=== PATIENT | female | born 1950 | race Caucasian/White ===

== ENCOUNTER → 2016-08-24 | Outpatient (CLI) | payer MEDICARE, OTHER ==
[~2016-08-24] MED LIST: SODIUM CHLORIDE 0.9% 250 ML in EMPTY BAG 1 BAG IV PRN; SODIUM CHLORIDE 0.9% 500 ML in EMPTY BAG 1 BAG IV PRN
[2016-08-24 12:51] VITALS: BP 174/74; PULSE 61; RESP 16; TEMP 97.8
== END | disposition home or self-care (01) ==
LOC: PROCWHC3 12:28
PROVIDERS: ATTEND Physician Assistant
DX: Z95.828 Presence of other vascular implants and grafts (principal); Z88.0 Allergy status to penicillin; Z88.8 Allergy status to other drugs, medicaments and biological substances; Z91.040 Latex allergy status
CPT/HCPCS: 96523; J1642

== ENCOUNTER → 2016-10-05 | Outpatient (CLI) | payer MEDICARE, OTHER ==
[2016-10-05 13:02] VITALS: BP 132/72; PULSE 59; RESP 18; TEMP 98.1
== END | disposition home or self-care (01) ==
LOC: PROCWHC3 12:47
PROVIDERS: ATTEND Obstetrics & Gynecology
DX: Z95.828 Presence of other vascular implants and grafts (principal); T82.599A Other mechanical complication of unspecified cardiac and vascular devices and implants, initial encounter
CPT/HCPCS: 96523; J1642

== ENCOUNTER → 2016-11-16 | Outpatient (CLI) | payer MEDICARE ==
[2016-11-16 13:39] VITALS: BP 133/67; PULSE 63; RESP 16; TEMP 98.1
== END | disposition home or self-care (01) ==
LOC: PROCWHC3 12:54
PROVIDERS: ATTEND Physician Assistant
DX: Z09 Encounter for follow-up examination after completed treatment for conditions other than malignant neoplasm (principal); Z95.828 Presence of other vascular implants and grafts
CPT/HCPCS: 96523; J1642

== ENCOUNTER → 2016-12-28 | Outpatient (CLI) | payer MEDICARE ==
[2016-12-28 13:35] VITALS: BP 145/69; PULSE 53; RESP 22; TEMP 97.8
== END | disposition home or self-care (01) ==
LOC: PROCWHC3 12:54
PROVIDERS: ATTEND Physician Assistant
DX: Z48.812 Encounter for surgical aftercare following surgery on the circulatory system (principal); Z95.828 Presence of other vascular implants and grafts
CPT/HCPCS: 96523; J1642

== ENCOUNTER → 2017-02-09 | Outpatient (CLI) | payer MEDICARE ==
[2017-02-09 13:08] VITALS: BP 178/79; PULSE 62; RESP 16; TEMP 97.8
== END | disposition home or self-care (01) ==
LOC: PROCWHC3 12:38
PROVIDERS: ATTEND Physician Assistant
DX: Z95.828 Presence of other vascular implants and grafts (principal)
CPT/HCPCS: 96523; J1642

== ENCOUNTER 2017-05-18 14:10 | Emergency (ER) | payer MEDICARE ==
[2017-05-18 14:27] VITALS: BP 178/82; PULSE 70; RESP 18; TEMP 98.6
--- NOTE | 2017-05-18 14:58 | ED ---
Fall HPI - General Chief Complaint: Fall Stated Complaint: Fall Time Seen by Provider: 05/18/17 14:32 Source: patient, RN notes reviewed Mode of arrival: ambulatory Limitations: no limitations - History of Present Illness Initial Comments: This a 66-year-old female presents emergency Department chief complaint right shoulder pain. Patient states she tripped and fell today the ground her right shoulder with her arm tucked in. She states that she has increasing pain states that she can barely move her arm. Patient states that she's had no prior shoulder injuries other than a few weeks ago she tripped and fell on it. She denies any prior fractures. Patient denies head injury, LOC, neck pain, back pain. Patient denies any hip or any lower extremity injury. Patient has no paresthesias. - Related Data Home Medications Medication Instructions Recorded Confirmed Ascorbic Acid [Vitamin C] 1,000 mg PO DAILY 12/31/13 05/18/17 Atenolol 50 mg PO DAILY 12/31/13 05/18/17 Calcium Carbonate/Vitamin D3 1 cap PO BID 12/31/13 05/18/17 [Caltrate 600 Plus D3 Tablet] Multivitamin/Iron/Folic Acid 1 cap PO DAILY 12/31/13 05/18/17 [Centrum Complete Multivit Tab] Olmesartan/Amlodipin/Hcthiazid 1 cap PO DAILY 12/31/13 05/18/17 [Tribenzor 40-10-25 mg Tablet] Atorvastatin [Lipitor] 10 mg PO DAILY 05/18/17 05/18/17 Levothyroxine Sodium [Synthroid] 150 mcg PO DAILY 05/18/17 05/18/17 [place]-3 Fatty Acids/Fish Oil [Fish 1 cap PO DAILY 05/18/17 05/18/17 Oil 1,000 mg Softgel] Allergies Allergy/AdvReac Type Severity Reaction Status Date / Time latex Allergy Rash/Hives Verified 05/18/17 14:58 Penicillins Allergy Unknown Verified 05/18/17 14:58 Childhood Review of Systems ROS Statement: Those systems with pertinent positive or pertinent negative responses have been documented in the HPI. ROS Other: All systems not noted in ROS Statement are negative. Past Medical History Past Medical History: Cancer Additional Past Medical History / Comment(s): frequent constipation; hemorrhoids ; arthritis; uterine cancer History of Any Multi-Drug Resistant Organisms: None Reported Past Surgical History: Hysterectomy, Joint Replacement Additional Past Surgical History / Comment(s): endometrial biopsy ankle ORIF R Left knee replacement Past Psychological History: No Psychological Hx Reported Smoking Status: Former smoker Past Alcohol Use History: None Reported Past Drug Use History: None Reported General Exam Limitations: no limitations General appearance: alert, in no apparent distress Respiratory exam: Present: normal lung sounds bilaterally. Absent: respiratory distress, wheezes, rales, rhonchi, stridor Cardiovascular Exam: Present: regular rate, normal rhythm, normal heart sounds. 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 Absent: tenderness Neurological exam: Present: alert, oriented X3, CN II-XII intact, reflexes normal. Absent: motor sensory deficit Skin exam: Present: warm, dry, intact, normal color. Absent: rash Course Vital Signs 05/18/17 14:24 Temperature 98.6 F Pulse Rate 70 Respiratory 18 Rate Blood Pressure 178/82 O2 Sat by Pulse 96 Oximetry Medical Decision Making - Medical Decision Making 66-year-old female presents emergency Department treatment right shoulder injury. Patient has no acute fracture dislocation on x-ray. Patient most likely has a rotator cuff injury secondary to her all and unable to move at this time. Patient will be given a sling for comfort care she is to take over- the-counter Tylenol Motrin she was offered further pain medication. Patient will follow-up with [facility]-call [facility]opedics [facility] return parameters were discussed. Disposition Clinical Impression: Fall, Right shoulder injury, Rotator cuff injury Disposition: HOME SELF-CARE Condition: Stable Instructions: Rotator Cuff Injury (ED) Additional Instructions: Please return to the Emergency Department if symptoms worsen or any other concerns. Referrals: Randall Hamilton MD [Primary Care Provider] - 1-2 days Time of Disposition: 15:19
--- NOTE | 2017-05-18 15:05 | XR ---
Right shoulder HISTORY: Trauma and pain 3 views of the right shoulder There is marginal spurring, joint space loss at the glenohumeral joint. Bone mineralization mildly re duced. Arthropathy also noted at the acromioclavicular joint. Right lung apex as visualized is normal . Alignment is maintained. IMPRESSION: No acute fracture or dislocation.
== END 2017-05-18 15:15 | disposition home or self-care (01) ==
LOC: EC 14:10
DX: S46.001A Unspecified injury of muscle(s) and tendon(s) of the rotator cuff of right shoulder, initial encounter (principal); Z79.899 Other long term (current) drug therapy; Z88.0 Allergy status to penicillin; Z91.040 Latex allergy status; Z85.41 Personal history of malignant neoplasm of cervix uteri; W01.0XXA Fall on same level from slipping, tripping and stumbling without subsequent striking against object, initial encounter
CPT/HCPCS: 99283

== ENCOUNTER 2017-09-01 06:25 | Day surgery (SDC) | payer MEDICARE ==
[2017-08-25 11:02] VITALS: BMI 34.7
[~2017-09-01 06:25] MED LIST changes: +LACTATED RINGERS 1,000 ML IV SCH; +MIDAZOLAM 2 MG/2 ML VIAL IV PRN; +ONDANSETRON 4 MG/2 ML VIAL IVP PRN; -SODIUM CHLORIDE 0.9% 250 ML in EMPTY BAG 1 BAG IV PRN; -SODIUM CHLORIDE 0.9% 500 ML in EMPTY BAG 1 BAG IV PRN; +ceFAZolin IN SWFI 2 GM/20 ML SYRINGE IVP ONE; +fentaNYL (PF) 50 MCG/ML 2 ML AMP IV PRN
[2017-09-01] MEDS ORDERED: LIDOCAINE 1% 20 ML VIAL (10MG/ML) FOR IV START INTRADERMA ONE (06:57)
[2017-09-01] MEDS ORDERED: LIDOCAINE 2%-EPI 1:100,000 20 ML VIAL ONE (08:07)
[2017-09-01] MEDS ORDERED: ROPIVACAINE 5 MG/ML 30 ML VIAL ONE (08:07)
[2017-09-01] MEDS ORDERED: PHENYLEPHRINE-0.9% NACL SYG 1 MG/10 ML SYRINGE ONE (08:07)
[2017-09-01] MEDS ORDERED: ePHEDrine SULFATE/0.9% NACL/PF 50 MG/5 ML SYRINGE IV ONE (08:07)
[2017-09-01] MEDS ORDERED: LIDOCAINE 1% INJ 10MG/ML (20 ML MDV) ONE (08:07)
[2017-09-01] MEDS ORDERED: ROCURONIUM BROMIDE 10 MG/ML 10 ML VIAL IV ONE (08:07)
[2017-09-01] MEDS ORDERED: SUCCINYLCHOLINE CHLORIDE 100 MG/5 ML SYR IV ONE (08:07)
[2017-09-01] MEDS ORDERED: PROPOFOL 10 MG/ML 20 ML VIAL IV ONE (08:07)
[2017-09-01] MEDS ORDERED: fentaNYL (PF) 50 MCG/ML 2 ML AMP ONE (08:07)
[2017-09-01] MEDS ORDERED: CLINDAMYCIN 600 MG in SODIUM CHLORIDE 0.9% 1,000 ML IRRIGATION ONE (08:58)
[2017-09-01] MEDS ORDERED: HYDROmorphone 0.5 MG/0.5 ML SYRINGE IVP PRN ×3 (09:46)
[2017-09-01] MEDS ORDERED: SENNOSIDES-DOCUSATE SODIUM 1 EACH TAB PO PRN (09:46)
[2017-09-01] MEDS ORDERED: TEMAZEPAM 15 MG CAP PO PRN (09:46)
[2017-09-01] MEDS ORDERED: HYDROcodone/APAP 5-325MG 1 EACH TAB PO PRN (09:46)
[2017-09-01] MEDS ORDERED: ONDANSETRON 4 MG/2 ML VIAL IVP PRN (09:46)
[2017-09-01] MEDS ORDERED: SODIUM CHLORIDE 0.9% 1,000 ML IV ONE (10:01)
[2017-09-01] MEDS ORDERED: HYDROmorphone 2 MG/ML 1 ML SYRINGE IVP ONE ×2 (10:11→10:26)
[2017-09-01] MEDS ORDERED: SODIUM CHLORIDE 0.9% 500 ML IV ONE ×2 (11:19→11:24)
[2017-09-01] MEDS ORDERED: diphenhydrAMINE 25 MG CAP PO PRN (11:23)
[2017-09-01] MEDS ORDERED: IBUPROFEN 400 MG TAB PO PRN (11:28)
[2017-09-01] MEDS ORDERED: ACETAMINOPHEN TAB 325 MG TAB PO PRN (11:28)
--- NOTE | 2017-09-01 14:14 | P.CONS ---
History of Present Illness - Reason for Consult Consult date: 09/01/17 Medical management - History of Present Illness This is a 67-year-old female patient of Dr. Pranay Hamilton with past medical history of uterine cancer diagnosed 7 years ago status post chemotherapy prior to hysterectomy and after managing [facility], hyperlipidemia, hypertension, hypothyroidism, osteoarthritis. Patient was admitted to the hospital under the care of Dr. Barbosa status post rotator cuff repair. She states she fell on May 30 and stop and able to move her right arm. Her pain is controlled at this time. She does have some hypotension for which 500 mL of IV fluids will be given now. Review of Systems All systems: negative Constitutional: Denies chills, Denies fever Eyes: denies blurred vision, denies pain Ears, nose, mouth and throat: Denies headache, Denies sore throat Cardiovascular: Denies chest pain, Denies shortness of breath Respiratory: Denies cough Gastrointestinal: Denies abdominal pain, Denies diarrhea, Denies nausea, Denies vomiting Genitourinary: Denies dysuria, Denies hematuria Musculoskeletal: Denies myalgias Integumentary: Denies pruritus, Denies rash Neurological: Denies numbness, Denies weakness Psychiatric: Denies anxiety, Denies depression Endocrine: Denies fatigue, Denies weight change Past Medical History Past Medical History: Cancer, Hyperlipidemia, Hypertension, Osteoarthritis (OA) , Thyroid Disorder Additional Past Medical History / Comment(s): frequent constipation; hemorrhoids ; arthritis; uterine cancer History of Any Multi-Drug Resistant Organisms: None Reported Past Surgical History: Hysterectomy, Joint Replacement Additional Past Surgical History / Comment(s): endometrial biopsy, ankle ORIF R , Left knee replacement, port placement and removal Past Anesthesia/Blood Transfusion Reactions: Postoperative Nausea & Vomiting ( PONV) Smoking Status: Former smoker Additional Past Alcohol Use History / Comment(s): Patient was a smoker starting at age 21 and quit in 1993 at one pack per day. She denies any illicit drug use or alcohol use. 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 - Past Family History Mother Family Medical History: No Reported History Additional Family Medical History / Comment(s): Mother at age 76 from a myocardial infarction. Father Additional Family Medical History / Comment(s): Father in his 70s from emphysema and had a history of colon cancer. Brother(s) Additional Family Medical History / Comment(s): Patient had total of 4 brothers , one from heart failure at age 42, 3 brothers living have no major medical problems. Patient has 1 sister with no major medical problems. Patient has 3 daughters and 1 son with no major medical problems. Medications and Allergies Home Medications Medication Instructions Recorded Confirmed Type Ascorbic Acid [Vitamin C] 1,000 mg PO DAILY 12/31/13 08/25/17 History Calcium Carbonate/Vitamin D3 1 cap PO BID 12/31/13 08/25/17 History [Caltrate 600 Plus D3 Tablet] Multivitamin/Iron/Folic Acid 1 cap PO DAILY 12/31/13 08/25/17 History [Centrum Complete Multivit Tab] Olmesartan/Amlodipin/Hcthiazid 1 cap PO DAILY 12/31/13 08/25/17 History [Tribenzor 40-10-25 mg Tablet] Atorvastatin [Lipitor] 10 mg PO Q48H 05/18/17 08/25/17 History Levothyroxine Sodium [Synthroid] 150 mcg PO DAILY 05/18/17 08/25/17 History [place]-3 Fatty Acids/Fish Oil [Fish 1 cap PO DAILY 05/18/17 08/25/17 History Oil 1,000 mg Softgel] Acetaminophen Tab [Tylenol Tab] 650 mg PO Q4H PRN 08/25/17 08/25/17 History Cholecalciferol [Vitamin D3] 400 unit PO DAILY 08/25/17 08/25/17 History Ibuprofen 200 - 800 mg PO DAILY PRN 08/25/17 08/25/17 History Metoprolol Tartrate [Lopressor] 50 mg PO HS 08/25/17 08/25/17 History diphenhydrAMINE [Benadryl] 25 mg PO HS PRN 08/25/17 08/25/17 History Cephalexin [Keflex] 500 mg PO Q8HR #15 cap 09/01/17 Rx HYDROcodone/APAP 5-325MG [[place] 5] 1 - 2 each PO Q4-6H PRN #60 tab 09/01/17 Rx Sennosides-Docusate Sodium 2 tab PO DAILY #30 tablet 09/01/17 Rx [Senokot-S] Allergies Allergy/AdvReac Type Severity Reaction Status Date / Time acetaminophen Allergy CRYING, Verified 09/01/17 11:05 [From Tylenol-Codeine #3] DEPRESSED FEELING adhesive tape Allergy Rash/Hives Verified 09/01/17 11:05 codeine Allergy CRYING, Verified 09/01/17 11:05 [From Tylenol-Codeine #3] DEPRESSED FEELING latex Allergy Rash/Hives Verified 09/01/17 11:05 Penicillins Allergy Unknown Verified 09/01/17 11:05 Childhood Physical Exam Vitals: Vital Signs Temp Pulse Resp BP Pulse Ox 09/01/17 10:29 87 14 105/53 96 09/01/17 10:14 90 14 102/51 96 09/01/17 09:59 89 14 99/53 94 L 09/01/17 09:44 96.8 F L 85 14 88/50 98 09/01/17 07:45 76 97 09/01/17 07:17 79 97 09/01/17 07:00 72 97 09/01/17 06:43 98.3 F 80 16 149/66 97 Intake and Output 08/31/17 09/01/17 09/01/17 22:59 06:59 14:59 Intake Total 1101 Output Total 30 Balance 1071 Intake: IV 1101 Output: Estimated Blood Loss 30 Gen: This is a 67-year-old obese female. She is sitting up in bed and appears to be comfortable. HEENT: Head is atraumatic, normocephalic. Pupils equal, round. Sclerae is anicteric. NECK: Supple. No JVD. No lymphadenopathy. No thyromegaly. LUNGS: Clear to auscultation. No wheezes or rhonchi. No intercostal retractions. HEART: Regular rate and rhythm. No murmur. ABDOMEN: Soft. Bowel sounds are present. No masses. No tenderness. EXTREMITIES: No pedal edema. No calf tenderness. Shoulder immobilizer and large dressing in place to the right shoulder. NEUROLOGICAL: Patient is awake, alert and oriented x3. Cranial nerves 2 through 12 are grossly intact. Assessment and Plan Plan: 1. Right shoulder cuff repair of the care of Dr. Barbosa. 2. Postop hypotension. IV fluids and 100 mL per hour after 500 mL bolus. 3. History of hypertension on Tribenzor which will be started in the morning. Lopressor 50 mg at bedtime with parameters 4. Hyperlipidemia. Continue Lipitor 10 mg every 48 hours. 5. Pain control with history of ALLERGY to codeine. Patient is willing to try Tylenol or Motrin. 6. Hypothyroidism. Continue Synthroid. 7. History of uterine cancer status post chemotherapy and hysterectomy, stable. Discharge plan: Home on Monday Impression and plan of care have been directed as dictated by the signing physician. Yudy Carrion nurse practitioner acting as scribe for signing physician.
[2017-09-01] MEDS: LACTATED RINGERS 1,000 ML IV SCH ×2 (14:29→14:59)
[2017-09-01] MEDS: ceFAZolin IN SWFI 2 GM/20 ML SYRINGE IVP SCH ×2 (15:09→23:45)
[2017-09-01] MEDS: HYDROcodone/APAP 5-325MG 1 EACH TAB PO PRN ×2 (16:57→23:44)
[2017-09-01] MEDS: hydrOXYzine PAMOATE 25 MG CAP PO PRN ×2 (16:57→23:44)
[2017-09-01] MEDS ORDERED: ATORVASTATIN 10 MG TAB PO SCH (21:00)
[2017-09-01] MEDS ORDERED: METOPROLOL TARTRATE 50 MG TAB PO SCH (21:00)
[2017-09-02] MEDS: LACTATED RINGERS 1,000 ML IV SCH (01:30)
[2017-09-02 01:37] VITALS: RESP 16
[2017-09-02] MEDS: hydrOXYzine PAMOATE 25 MG CAP PO PRN ×2 (04:57→10:08)
[2017-09-02] MEDS: HYDROcodone/APAP 5-325MG 1 EACH TAB PO PRN ×3 (04:57→14:28)
[2017-09-02] MEDS ORDERED: AMLODIPIN PO SCH (09:00)
[2017-09-02] MEDS ORDERED: [UNRECOGNIZED DRUG - OTHER] PO SCH (09:00)
[2017-09-02] MEDS ORDERED: HCTHIAZID PO SCH (09:00)
[2017-09-02] MEDS ORDERED: OLMESARTAN PO SCH (09:00)
[2017-09-02] MEDS ORDERED: BENZOCAINE/MENTHOL LOZENG 1 EACH LOZENGE MUCOUS MEM PRN (09:07)
--- NOTE | 2017-09-02 12:04 | P.PN ---
Subjective Progress Note Date: 09/02/17 Principal diagnosis: Status post rotator cuff repair right shoulder. This is a 67-year-old female who is status post rotator cuff repair the right shoulder. She is doing fairly well from an orthopedic standpoint. She does complain of a very sore throat, directly on the right side of her throat. She is having difficulty swallowing and feels that there is possibly food [place] or throat. Her vital signs are stable. She is having no respiratory distress at this time. Objective - Vital Signs Vital signs: Vital Signs Temp 98.3 F 09/02/17 07:00 Pulse 83 09/02/17 07:00 Resp 16 09/02/17 07:00 BP 110/71 09/02/17 07:00 Pulse Ox 97 09/02/17 07:00 Intake & Output 09/01/17 09/02/17 09/02/17 18:59 06:59 18:59 Intake Total 1101 1150 Output Total 30 Balance 1071 1150 Weight 97.5 kg Intake: IV 1101 900 Lactated Ringers 1,000 ml 900 @ 100 mls/hr IV .Q10H REJI Rx#:[id number] Oral 250 Output: Estimated Blood Loss 30 Other: Voiding Method Toilet Toilet # Voids 1 1 - Exam This is a pleasant 67-year-old female in no acute distress. She is alert and oriented 3. Exam of the right shoulder reveals that her dressing is clean, dry and intact. Her shoulder immobilizer is in place. She has full wrist and finger motion without difficulty or pain. Radial pulses +2/4. Neurovascular status the upper extremities intact. Exam of her throat reveals a very ecchymotic and swollen right tonsil and pharynx. The left side of her throat is unremarkable. Assessment and Plan (1) Rotator cuff tear arthropathy of right shoulder Current Visit: Yes Status: Acute Code(s): M12.811 - OTH SPECIFIC ARTHROPATHIES, NEC, RIGHT SHOULDER SNOMED Code(s): 13311866221875486 (2) Status post right rotator cuff repair Current Visit: Yes Status: Acute Code(s): Z98.890 - OTHER SPECIFIED POSTPROCEDURAL STATES SNOMED Code(s): 792449911 (3) Tonsillar enlargement Current Visit: Yes Status: Acute Code(s): J35.1 - HYPERTROPHY OF TONSILS SNOMED Code(s): 960342452 Plan: The clinical findings are discussed with the patient. With regard to her shoulder she may be discharged to home today. I did asked nursing to contact anesthesia to evaluate her throat to rule out a traumatic intubation. There is no airway compromise at this time. I ordered some throat lozenges for comfort.
--- NOTE | 2017-09-02 12:06 | P.DS ---
Providers Expected date of discharge: 09/02/17 Attending physician: Cameron Barbosa Consults: 09/01/17 09:46 Consult Physician Routine Consulting Provider: Shanae Ceja Consult Reason/Comments: medical management Do you want consulting provider notified?: Yes Primary care physician: Randall Hamilton - Discharge Diagnosis(es) (1) Rotator cuff tear arthropathy of right shoulder Current Visit: Yes Status: Acute (2) Status post right rotator cuff repair Current Visit: Yes Status: Acute (3) Tonsillar enlargement Current Visit: Yes Status: Acute Hospital Course: This is a 67-year-old female with history of rotator cuff tear the right shoulder. She is admitted to [facility] on 09/01[facility]2017 for rotator cuff repair, subacromial decompression and distal clavicle excision. The patient did well from an orthopedic standpoint. She did have some swelling to her right tonsil postoperatively. There is no airway compromise noted. She is awaiting evaluation from anesthesia prior to discharge. The patient may be discharged to home today if cleared medically. Plan - Discharge Summary Discharge Rx Participant: Yes New Discharge Prescriptions: New Cephalexin [Keflex] 500 mg PO Q8HR #15 cap HYDROcodone/APAP 5-325MG [[place] 5] 1 - 2 each PO Q4-6H PRN #60 tab PRN Reason: Pain Sennosides-Docusate Sodium [Senokot-S] 2 tab PO DAILY #30 tablet Benzocaine/Menthol Lozeng [Cepacol lozenge] 1 each MUCOUS MEM Q4HR #30 lozenge No Action Ascorbic Acid [Vitamin C] 1,000 mg PO DAILY Olmesartan/Amlodipin/Hcthiazid [Tribenzor 40-10-25 mg Tablet] 1 cap PO DAILY Multivitamin/Iron/Folic Acid [Centrum Complete Multivit Tab] 1 cap PO DAILY Calcium Carbonate/Vitamin D3 [Caltrate 600 Plus D3 Tablet] 1 cap PO BID Atorvastatin [Lipitor] 10 mg PO Q48H Levothyroxine Sodium [Synthroid] 150 mcg PO DAILY [place]-3 Fatty Acids/Fish Oil [Fish Oil 1,000 mg Softgel] 1 cap PO DAILY Cholecalciferol [Vitamin D3] 400 unit PO DAILY Metoprolol Tartrate [Lopressor] 50 mg PO HS diphenhydrAMINE [Benadryl] 25 mg PO HS PRN PRN Reason: ALLERGIES,SLEEP Ibuprofen 200 - 800 mg PO DAILY PRN PRN Reason: Pain Acetaminophen Tab [Tylenol Tab] 650 mg PO Q4H PRN PRN Reason: Pain Discharge Medication List Ascorbic Acid [Vitamin C] 1,000 mg PO DAILY 12/31/13 [History] Calcium Carbonate/Vitamin D3 [Caltrate 600 Plus D3 Tablet] 1 cap PO BID [History] Multivitamin/Iron/Folic Acid [Centrum Complete Multivit Tab] 1 cap PO DAILY [History] Olmesartan/Amlodipin/Hcthiazid [Tribenzor 40-10-25 mg Tablet] 1 cap PO DAILY [History] Atorvastatin [Lipitor] 10 mg PO Q48H 05/18/17 [History] Levothyroxine Sodium [Synthroid] 150 mcg PO DAILY 05/18/17 [History] [place]-3 Fatty Acids/Fish Oil [Fish Oil 1,000 mg Softgel] 1 cap PO DAILY [History] Acetaminophen Tab [Tylenol Tab] 650 mg PO Q4H PRN 08/25/17 [History] Cholecalciferol [Vitamin D3] 400 unit PO DAILY 08/25/17 [History] Ibuprofen 200 - 800 mg PO DAILY PRN 08/25/17 [History] Metoprolol Tartrate [Lopressor] 50 mg PO HS 08/25/17 [History] diphenhydrAMINE [Benadryl] 25 mg PO HS PRN 08/25/17 [History] Cephalexin [Keflex] 500 mg PO Q8HR #15 cap 09/01/17 [Rx] HYDROcodone/APAP 5-325MG [[place] 5] 1 - 2 each PO Q4-6H PRN #60 tab 09/01/17 [Rx] Sennosides-Docusate Sodium [Senokot-S] 2 tab PO DAILY #30 tablet 09/01/17 [Rx] Benzocaine/Menthol Lozeng [Cepacol lozenge] 1 each MUCOUS MEM Q4HR #30 lozenge 09/02/17 [Rx] Follow up Appointment(s)/Referral(s): Cameron Barbosa DO [Doctor of Osteopathic Medicine] - 2 Weeks Activity/Diet/Wound Care/Special Instructions: Keep incision clean and dry Change dressing daily May shower in 3 days if no drainage from incision Keep arm sling/abductor pillow in place except when bathing Follow up with Dr. Barbosa in 2 weeks. Call [facility] with any questions or concerns. [phone] Discharge Disposition: HOME SELF-CARE
[2017-09-02 14:13] VITALS: BP 100/62; PULSE 85; TEMP 98.2
--- NOTE | 2017-09-02 14:30 | P.PN ---
Progress Note - Text Progress Note Date: 09/02/17 This is a right shoulder arthroscopy , under general endotracheal anesthesia, today postop day one patient was complaining of, sore throat on the right side the orolarynex , patient's vital signs stable there is no shortness of breath, able to swallow, oropharyngeal exam showed , some erythema and minimal swelling in the right tonsillar bed , the could complication of the intubations , even though the anesthesia record showed that the intubations done with one attempt . Advice the patient to use ibuprofen 600 mg 3 times a day with food , to use warm fluid (tea ) .most likely her symptoms it will improve within 48 hours otherwise she has to follow-up with her primary care .
--- NOTE | 2017-09-03 12:07 | P.ONQ ---
Anesthesiology Proc Note - PNB - Peripheral Nerve Block Performed Right Interscalene Single Time Out Performed: Yes Indication: Acute Post-Operative Pain, Requested by physician Sedation Type: Sedate with meaningful contact maintained Preparation: Sterile Prep Position: Supine Needle Size: 50mm (2") Needle Gauge: 21 Technique: Ultrasound Injectate: 0.5% Ropivacaine (see comment for volume) (ropi.5% 30cc) Blood Aspirated: No Pain Paresthesia on Injection Noted: No Resistance on Injection: Normal Events: Uneventful and Well Tolerated
--- NOTE | 2017-09-07 09:48 | OP ---
OPERATIVE REPORT DATE OF SERVICE: 09/01/2017. SURGEON: Cameron Barbosa DO. ASSISTANT PROFESSOR OF NURSING: Noy Elizabeth NP PREOPERATIVE DIAGNOSIS: Torn right rotator cuff. POSTOPERATIVE DIAGNOSIS: Complete tear of the right rotator cuff. PROCEDURE: Resection distal right clavicle, decompression acromioplasty and right rotator cuff repair utilizing 2 Arthrex bioabsorbable anchors. DESCRIPTION OF PROCEDURE: Patient was taken to the operative suite and placed in supine position. A regional anesthesia had been performed by the department of anesthesia in preoperative area. The patient was placed in the beach chair position, padded and secured. A Betadine prep was carried out over the right shoulder. Sterile drapes applied in the usual manner. A minimally invasive anterolateral incision was developed over the acromion. Sharp dissection was carried out through the subcutaneous tissue. The superior acromioclavicular ligament was identified and resected. The distal 1 cm of the clavicle was excised with a bone saw. The deltoid was then released along the anterolateral border. The coracoacromial ligament was released. The width of the acromion was shaped with a bone saw. The anterolateral decompression acromioplasty was performed. The acromial under surface was shaped with bone saw and bone rasp. Complete rotator cuff tear was noticed at this time as well as supraspinatus, infraspinatus and superior portion of the subscapularis. The lateral edge and tuberosity was smoothed with rongeur. The area was irrigated copiously. Two 5.5 Arthrex bioabsorbable anchors were then inserted and the repair was carried out. The area again was irrigated with antibiotic solution. The deltoid was then approximated into the acromion with #1 Ethibond suture. The deep fascia was approximated with #1 Vicryl suture in running fashion. The subcutaneous tissue was approximated with 2-0 Vicryl suture in interrupted fashion. The skin was approximated with 3-0 Vicryl Quill suture in a subcuticular fashion. The incision was sealed with Dermabond. A sterile dressing was applied. The patient was placed in an abductor pillow splint and transferred to the recovery room in satisfactory postop condition. GROSS PATHOLOGY: There was evidence of complete tear of the right rotator cuff involving the supraspinatus and infraspinatus tendons as well as the superior portion of subscapularis tendon. MMODL / IJN: [id number] / MTDD
== END 2017-09-02 14:40 | disposition home or self-care (01) ==
LOC: OR 06:25 → EDSTATUS 08:00 → 3SUR 09:44 → OR 09-02 14:40
PROVIDERS: ATTEND Orthopaedic Surgery
DX: S46.011A Strain of muscle(s) and tendon(s) of the rotator cuff of right shoulder, initial encounter (principal); W01.0XXA Fall on same level from slipping, tripping and stumbling without subsequent striking against object, initial encounter; Y92.009 Unspecified place in unspecified non-institutional (private) residence as the place of occurrence of the external cause; M19.011 Primary osteoarthritis, right shoulder; I95.81 Postprocedural hypotension; J35.1 Hypertrophy of tonsils; E78.5 Hyperlipidemia, unspecified; I10 Essential (primary) hypertension; E03.9 Hypothyroidism, unspecified; Z85.42 Personal history of malignant neoplasm of other parts of uterus; M81.0 Age-related osteoporosis without current pathological fracture; J30.9 Allergic rhinitis, unspecified; G62.9 Polyneuropathy, unspecified; K21.9 Gastro-esophageal reflux disease without esophagitis; Z92.21 Personal history of antineoplastic chemotherapy; Z79.890 Hormone replacement therapy; Z79.899 Other long term (current) drug therapy; Z88.5 Allergy status to narcotic agent; Z88.0 Allergy status to penicillin; Z91.040 Latex allergy status; Z88.6 Allergy status to analgesic agent; Z91.048 Other nonmedicinal substance allergy status; Z87.891 Personal history of nicotine dependence
CPT/HCPCS: 64415; 88304; 88342; 88311; 88341; 23410; C1713; J2250; J1170 ×2; J0690; J2405; J2001; J3010; J2795; J2370; J0330; J2704

== ENCOUNTER 2023-08-01 09:26 | Day surgery (SDC) | payer MEDICARE ==
[2023-07-27 12:35] VITALS: BMI 33.3
[~2023-08-01 09:26] MED LIST changes: +ACETAMINOPHEN TAB 500 MG TAB PO PRN; +DEXAMETHASONE SOD PHOSPHATE 4 MG/ML 1 ML VIAL IV ONE; +GABAPENTIN 300 MG CAP PO PRN; +HYDROmorphone 0.5 MG/0.5 ML SYRINGE IVP PRN; -LACTATED RINGERS 1,000 ML IV SCH; +LIDOCAINE 1% (10MG/ML) FOR IV START INTRADERMA PRN; +MELOXICAM 7.5 MG TAB PO PRN; +ONDANSETRON 4 MG/2 ML VIAL IVP ONE; -ONDANSETRON 4 MG/2 ML VIAL IVP PRN; +TRANEXAMIC 1,000 MG/100ML-NACL 1,000 MG in SALINE 1 100ML.BAG IVPB PRN; -ceFAZolin IN SWFI 2 GM/20 ML SYRINGE IVP ONE; -fentaNYL (PF) 50 MCG/ML 2 ML AMP IV PRN
[2023-08-01] MEDS: LACTATED RINGERS 1,000 ML IV SCH ×2 (10:13→10:58)
--- NOTE | 2023-08-01 10:43 | P.ANPRN ---
Procedure Note - Anesthesia - Nerve Block Performed Right Adductor Canal Infusion Time Out Performed: Yes (1025) Date of Procedure: 08/01/23 Location of Patient: PreOp Indication: Acute Post-Operative Pain, Analgesia, Dx/Pain Location (Right knee), Requested by Surgeon Specifically requested for management of pain by DrVikas: Adalberto Coppola Sedation Type: Sedate with meaningful contact maintained Preparation: Sterile Prep, Sterile Dressing Position: Supine Catheter: Indwelling Needle Types: [place] Needle Gauge: 18 Ultrasound used to visualize needle placement: Yes Ultrasound used to observe medication spread: Yes Injectate: 0.5% Ropivacaine (see comment for volume) (20 cc + 10 cc of normal saline) Blood Aspirated: No Pain Paresthesia on Injection Noted: No Resistance on Injection: Normal Image Stored and Saved: Yes Events: Uneventful and Well Tolerated Right iPack Single Time Out Performed: Yes Date of Procedure: 08/01/23 Location of Patient: PreOp Indication: Acute Post-Operative Pain, Dx/Pain Location (Right Knee), Requested by Surgeon Specifically requested for management of pain by DrVikas: Adalberto Coppola Sedation Type: Sedate with meaningful contact maintained Preparation: Sterile Prep Position: Left Lateral Catheter: None Needle Types: [place] Needle Gauge: 21 Ultrasound used to visualize needle placement: Yes Ultrasound used to observe medication spread: Yes Injectate: 0.5% Ropivacaine (see comment for volume) (20 cc + 10 cc of normal saline) Blood Aspirated: No Pain Paresthesia on Injection Noted: No Resistance on Injection: Normal Image Stored and Saved: Yes
[2023-08-01] MEDS ORDERED: ROPIVACAINE 1,100 MG, SODIUM CHLORIDE 0.9% 500 ML 330 ML, EMPTY PAIN BALL 1 EACH MISCELLANE PRN ×2 (10:44)
[2023-08-01] MEDS ORDERED: HYDROmorphone 0.5 MG/0.5 ML SYRINGE IVP PRN ×3 (10:46)
[2023-08-01] MEDS ORDERED: NA PHOS,M-B/NA PHOS,DI-BA 133 ML ENEMA RECTAL PRN (10:46)
[2023-08-01] MEDS ORDERED: bisacodyL 10 MG SUPP RECTAL PRN (10:46)
[2023-08-01] MEDS ORDERED: NALOXONE 0.4 MG/ML 1 ML VIAL IV PRN (10:46)
[2023-08-01] MEDS ORDERED: ONDANSETRON 4 MG/2 ML VIAL IVP PRN (10:46)
[2023-08-01] MEDS ORDERED: MAGNESIUM HYDROXIDE 2,400 MG/30 ML CUP PO PRN (10:46)
[2023-08-01] MEDS ORDERED: HYDROcodone/APAP 7.5-325MG 1 EACH TAB PO PRN (10:48)
[2023-08-01] MEDS ORDERED: fentaNYL (PF) 50 MCG/ML 2 ML AMP ONE (10:55)
[2023-08-01] MEDS ORDERED: ROPIVACAINE 5 MG/ML 30 ML VIAL ONE (10:55)
[2023-08-01] MEDS ORDERED: PHENYLEPHRINE-0.9% NACL SYG 1,000 MCG/10 ML SYRINGE ONE (10:55)
[2023-08-01] MEDS ORDERED: PROPOFOL 10 MG/ML 20 ML VIAL IV ONE (10:55)
[2023-08-01] MEDS ORDERED: MIDAZOLAM 2 MG/2 ML VIAL ONE (10:55)
[2023-08-01] MEDS ORDERED: SODIUM CHLORIDE 0.9% (PF) 10 ML VIAL ONE (10:55)
[2023-08-01] MEDS ORDERED: ePHEDrine 50 MG/ML 1 ML VIAL ONE (10:55)
[2023-08-01] MEDS ORDERED: TRANEXAMIC 1,000 MG/100ML-NACL PREMIX BAG ONE (10:55)
[2023-08-01] MEDS ORDERED: ceFAZolin 1,000 MG in SODIUM CHLORIDE 0.9% 1,000 ML IRRIGATION ONE (11:01)
[2023-08-01] MEDS ORDERED: LACTATED RINGERS 1,000 ML IV ONE ×2 (12:15→14:58)
--- NOTE | 2023-08-01 12:17 | P.OP ---
Date of Procedure: 08/01/23 Preoperative Diagnosis: Severe osteoarthritis right knee Postoperative Diagnosis: Severe osteoarthritis right knee Procedure(s) Performed: Right total knee arthroplasty Implants: Atkins & Nephew Journey II CR Oxinium cruciate retaining femoral component size 4, right Atkins [employer] Nephew Journey nonporous tibial baseplate size 3, right Atkins [employer] Nephew Journey II, XLPE Deep Dished articular insert, size 12 mm, Size 3-4, right Atkins [employer]hew Journey Suly II resurfacing patellar component, oval, 29 mm All components were cemented using Palacos R bone cement The articulation is Oxinium on polyethylene Anesthesia: spinal Surgeon: Adalberto Coppola Wool Brusher #1: Hallie gN Estimated Blood Loss (ml): 50 Pathology: none sent Condition: stable Disposition: PACU Indications for Procedure: The patient's knee is end-stage, and conservative management has failed. The operation of knee replacement has been discussed at length in the office, as well as potential risks and complications. These are inclusive of, but not limited to: Infection, bleeding, scarring, discomfort, stiffness, blood vessel and nerve damage, need for further surgery, failure to relieve symptoms, persistence, recurrence, or worsening of problems, loosening, dislocation, wear, blood clot, pulmonary embolism, , gait dysfunction, stiffness, and other risks as discussed in the office. Patient elects to proceed and the consent form has been signed. Operative Findings: The operative findings are consistent with severe osteoarthritis of the right knee Description of Procedure: The patient was seen in the preoperative area, the consent was reviewed and the operative site was marked with a skin marker. The patient verified the procedure and the operative site. An adductor canal pain catheter and an iPACK block were placed by anesthesia in the preoperative area. The patient was then brought to the operating room and positioned on the operating room table in the supine position. Preoperative antibiotics and a gram of tranexamic acid were given intravenously. A spinal anesthetic was administered by the anesthesia department. Care was taken to make sure that all pressure points were adequately padded. A tourniquet was placed on the upper thigh and the lower extremity was prepped with ChloraPrep and draped in usual sterile fashion. A universal time-out was then performed which confirmed the patient's name, surgical site, ALLERGIES, and consent. The lower extremity was then exsanguinated and tourniquet was inflated to 250 mmHg. A standard anterior midline approach to the knee was performed. The skin and subcutaneous tissue were sharply dissected down to the patellar tendon. A medial parapatellar arthrotomy was then performed. The knee was then extended, the patellar was everted, and the knee was flexed. The infra-patellar fat pad was removed in order to enhance exposure. The anterior horns of both menisci were excised, and a release was performed to the posterior medial aspect of the knee. On gross visual inspection, there was complete loss of articular cartilage in the medial and patellofemoral joint spaces. There was also significant cartilage damage in the lateral compartment. There were multiple periarticular osteophytes globally about the knee which were then removed with a Ronguer. The femoral canal was then opened with the 9.5 mm intramedullary drill. The 8 mm intramedullary graham was then inserted into the femoral canal with the distal femoral cutting guide set for 5 of valgus. The distal femoral cutting block was then pinned in place. The intramedullary graham was then removed, and the distal femur was then cut. The cutting block was then removed and the cut was checked for symmetry. The resected bone was then measured to confirm the appropriate distal femoral resection. Next, the sizing guide was then placed and set for 3 external rotation based off of the epicondylar axis and Carteret's line. Pins were then placed and the drill holes, and the femur was sized with the sizing stylus. The pins were then removed, and the sizing guide was then removed. The spikes of the appropriate size femoral block was then placed into the predrilled holes, and malleted into place. Two 45 mm pins were then placed into the fixation holes on the cutting block. An edenilson wing was then used to ensure there would be no notching with the anterior cut. The anterior condyles were cut without notching. The anterior chord cut was then performed, followed by the posterior cut, posterior chamfer cut, and the anterior chamfer cut. The collateral ligaments were protected during the entire process. The cutting block was then removed. Any remaining bone and osteophytes were removed from the femur with a Ronguer. Attention was then directed to the tibia. The remaining ACL was removed with a Ronguer, and the tibia was then gently subluxed forward with a large bent knee retractor. Any remaining menisci were excised. The posterior lateral corner was cauterized in order to coagulate the lateral geniculate artery. The extra medullary tibial cutting guide was then placed, set for the appropriate rotation, slope, and depth of resection. The proximal tibia cutting guide was then pinned in place. Proximal tibia was then cut and sized. A curved osteotome was then used to remove any posterior osteophytes from the distal femur. The femoral trial was placed. A narrow saw blade was then used to remove the anterior intracondylar femoral bone. The CR notch trial was then placed. The tibial trial was placed with the appropriate-sized insert. The knee was able to fully extend and flex to 130 and was stable throughout all range of motion. The knee was then extended and the patella was everted. Patella was then measured, and then using an osteotomy guide, the patella was cut at the appropriate level. The patellar component was sized. The patellar drill guide was placed and the patella was drilled. The patella trial was then placed. The knee was then taken through range of motion with the patella trial and the patella tracked normally using the no thumbs technique. The patella trial was then removed. The knee was then flexed and lug holes were drilled through the femoral trial and the femoral trial was then removed. The tibial was then re- exposed, and the tibial broach guide was then pinned in place after it was set for the appropriate rotation to allow for the most coverage without overhang. The tibia was then reamed and broached. The femoral canal was plugged with autologous bone. The cut surfaces of bone were then irrigated with pulsatile lavage. The knee was also irrigated with Irrisept solution. The components were then opened, the cement was mixed. Cement was placed on the backside of the femoral, tibial, and patellar components. Cement was then applied to the tibial surface and pressurized into the surface using finger pressurization technique. The tibial component was then applied and excess cement was removed after it was impacted securely noted to be flush with the cut surface. In similar fashion, the cement was applied to the cut femoral surface, pressurized and using finger pressurization the component was impacted in place. Excess cement was removed. The polyethylene spacer was then implanted and locked into position. Patellar component was then applied in a similar technique and the patellar clamp was used to hold patella in place while the cement hardened. The knee was held in full extension while the cement hardened. Once the cement had fully hardened, the knee was reinspected. Any other cement extrusion was removed the final range of motion testing showed range of motion from 0-130 with excellent stability, both medial and laterally and appropriate alignment of the leg. Patella tracked normally. After the cemented hardened, the tourniquet was released and hemostasis was obtained. A second gram of transexamic acid was given intravenously. The knee was again irrigated. The knee was again taken through range of motion and found to be stable throughout all range of motion of 0-130, and the patella tracked normally. The fascia was then closed with 0 Vicryl followed by #2 strata fix suture. The subcutaneous tissue was closed with 3-0 Vicryl and 3-0 strata fix. Exofin glue was used for the skin and placed with the knee in flexion. After the glue had dried, and Optafoam silver impregnated dressing was applied. A lightly compressive dressing was applied using web roll and Gen wrap. Patient was then transferred to the stretcher and taken to recovery room in stable condition. Sponge and needle counts were correct. The esl instructional assistant STEPHON Contreras was required due the complexity surgery and the need for a skilled surgical physician assistant. She assisted in positioning, draping, retraction, and closure of the wound.
[2023-08-01] MEDS: SODIUM CHLORIDE 0.9% 1,000 ML IV SCH (15:30)
--- NOTE | 2023-08-01 17:15 | XR ---
EXAMINATION TYPE: XR knee limited RT DATE OF EXAM: 08/01/2023 1:16 PM CLINICAL INDICATION:Female, 73 years old with history of Evaluation for Postop abnormality and alignm ent; [facility] COMPARISON: None. TECHNIQUE AND FINDINGS: Two views of the right knee. A total knee arthroplasty is in place, appears intact and normally align ed. No abnormal perihardware lucency or fracture. No significant malalignment. Posterior resurfacing changes of the patella. Soft tissues show swelling with no unexpected radiopaque foreign body. Some r egional soft tissue gas is present, not unexpected postoperative. IMPRESSION: Status post placement of total knee arthroplasty. No evidence of complication.
[2023-08-01] MEDS: HYDROcodone/APAP 7.5-325MG 1 EACH TAB PO PRN ×2 (17:16→23:35)
--- NOTE | 2023-08-01 18:06 | P.CONS ---
History of Present Illness - Reason for Consult Consult date: 08/01/23 HTN Requesting physician: Adalberto Coppola - Chief Complaint right knee pain - History of Present Illness Patient is a 73-year-old female with known hypertension, dyslipidemia, hypothyroidism, gout, and chronic kidney disease stage III due to hypertension who came in for an elective total knee arthroplasty. She tolerated the procedure without any postoperative complications. Patient seen and examined at bedside. She denies any nausea, lightheadedness, dizziness, or chest pain. She did have nasal congestion several days ago but this is getting better. Vital signs reviewed General: nontoxic, no distress, appears at stated age Derm: warm, dry Cardiovascular: S1S2 reg, no murmur, positive posterior tibial pulse bilateral, no edema, capillary refill less than 2 seconds Lungs: clear to auscultation bilateral, no rhonchi, no rales, no wheeze, no accessory muscle use Abdominal: soft, nontender to palpation, no guarding, no appreciable organomegaly, normal bowel sounds Ext: no gross muscle atrophy, no contractures Neuro: CN II-XII grossly intact, no focal neuro deficit Psych: Alert, oriented, appropriate affect Assessment/Plan: 73-year-old female status post right total knee arthroplasty. Hypertension Dyslipidemia Gout Chronic kidney disease stage III Hypothyroidism -Resume losartan, amlodipine, and hydrochlorothiazide combination tablet, metoprolol 50 mg at night, Synthroid 137 g daily -Check CBC and basic metabolic profile in a.m. given her chronic kidney disease stage III Data Review: Per-op blood work reviewed and HgB 12.9 and Cr 1.5 with GFR 37 Thank you for allowing us to participate in the care of this pleasant patient. Do not hesitate to contact us with questions. Someone can be reached from the [facility] hospitalist group all hours of the day at [phone] or via [employer]. This dictation was prepared using [employer] voice recognition software. Though every attempt is made to correct errors during dictation some may still exist. Past Medical History Past Medical History: Cancer, Hyperlipidemia, Hypertension, Osteoarthritis (OA), Thyroid Disorder Additional Past Medical History / Comment(s): uterine cancer, CKD III History of Any Multi-Drug Resistant Organisms: None Reported Past Surgical History: Hysterectomy, Joint Replacement Additional Past Surgical History / Comment(s): endometrial biopsy, ankle ORIF R, Left knee replacement, port placement and removal, right shoulder surg. Past Anesthesia/Blood Transfusion Reactions: No Reported Reaction, Postoperative Nausea & Vomiting (PONV) Past Psychological History: No Psychological Hx Reported Smoking Status: Former smoker Past Alcohol Use History: None Reported Additional Past Alcohol Use History / Comment(s): Patient was a smoker starting at age 21 and quit in 1993 at one pack per day Past Drug Use History: None Reported - Past Family History Mother Family Medical History: No Reported History Additional Family Medical History / Comment(s): Mother at age 76 from a myocardial infarction. Father Family Medical History: Cancer Additional Family Medical History / Comment(s): Father in his 70s from emphysema and had a history of colon cancer. Brother(s) Additional Family Medical History / Comment(s): Patient had total of 4 brothers, one from heart failure at age 42, one brother had lung tx. Patient has 1 sister with no major medical problems. Patient has 3 daughters and 1 son with no major medical problems. Medications and Allergies Home Medications Medication Instructions Recorded Confirmed Type Ascorbic Acid [Vitamin C] 1,000 mg PO DAILY 12/31/13 07/27/23 History Calcium Carbonate/Vitamin D3 1 cap PO DAILY 12/31/13 07/27/23 History [Caltrate 600 Plus D3 Tablet] Olmesartan/Amlodipin/Hcthiazid 1 cap PO DAILY 12/31/13 08/01/23 History [Tribenzor 40-10-25 mg Tablet] [place]-3 Fatty Acids/Fish Oil [Fish 1 cap PO DAILY 05/18/17 07/27/23 History Oil 1,000 mg Softgel] Cholecalciferol [Vitamin D3] 1 tab PO DAILY 08/25/17 07/27/23 History Metoprolol Tartrate [Lopressor] 50 mg PO HS 08/25/17 08/01/23 History Celecoxib [CeleBREX] 200 mg PO BID 07/27/23 07/27/23 History Cinnamon Bark [Cinnamon] 500 mg PO DAILY 07/27/23 08/01/23 History Cyanocobalamin [Vitamin B-12] 500 mcg PO DAILY 07/27/23 07/27/23 History Levothyroxine Sodium [Synthroid] 137 mcg PO DAILY 07/27/23 08/01/23 History Nf-Move Free Supp. 1 tab PO DAILY 07/27/23 07/27/23 History Zinc Gluconate [Zinc] 50 mg PO DAILY 07/27/23 08/01/23 History traMADol HCL 50 mg PO BID 07/27/23 08/01/23 History Aspirin 325 mg PO BID #60 tab 08/01/23 Rx HYDROcodone/APAP 7.5-325MG [[place] 1 - 2 tab PO Q6H PRN #32 tab 08/01/23 Rx 7.5-325] Sennosides [Senokot] 2 tab PO DAILY PRN #60 tablet 08/01/23 Rx Allergies Allergy/AdvReac Type Severity Reaction Status Date / Time acetaminophen Allergy CRYING, Verified 08/01/23 09:53 [From Tylenol-Codeine #3] DEPRESSED FEELING adhesive tape Allergy Rash/Hives Verified 08/01/23 09:53 codeine Allergy CRYING, Verified 08/01/23 09:53 [From Tylenol-Codeine #3] DEPRESSED FEELING latex Allergy Rash/Hives Verified 08/01/23 09:53 Penicillins Allergy Unknown Verified 08/01/23 09:53 Childhood Physical Exam Osteopathic Statement: *. No significant issues noted on an osteopathic structural exam other than those noted in the History and Physical/Consult. Vitals: Vital Signs Temp Pulse Resp BP Pulse Ox 08/01/23 16:10 69 116/58 97 08/01/23 15:55 66 117/58 100 08/01/23 15:40 68 120/60 100 08/01/23 15:25 67 123/63 100 08/01/23 15:17 97.5 F L 74 18 127/72 100 08/01/23 15:10 97.5 F L 68 127/72 98 08/01/23 14:50 58 L 17 106/51 97 08/01/23 14:33 62 17 104/52 95 08/01/23 14:18 58 L 12 100/43 95 08/01/23 14:03 58 L 14 102/47 94 L 08/01/23 13:48 58 L 21 97/49 94 L 08/01/23 13:33 80 17 95/44 96 08/01/23 13:18 65 16 98/47 96 08/01/23 13:03 65 17 94/45 99 08/01/23 12:48 97.8 F 73 16 90/50 97 08/01/23 10:01 97.3 F L 70 16 180/77 100 Intake and Output 08/01/23 08/01/23 08/01/23 06:59 14:59 22:59 Intake Total 2050 290 Output Total 50 Balance 2000 290 Intake: IV 2050 Intake, IV Titration 50 Amount ceFAZolin 2 gm In Sodium 50 Chloride 0.9% 50 ml @ 100 mls/hr IVPB Q8HR [facility] Rx# :[id number] Oral 240 Output: Estimated Blood Loss 50 Other: Weight 89.7 kg 89.7 kg
[2023-08-01] MEDS: ASPIRIN 325 MG TAB PO SCH (20:36)
[2023-08-01] MEDS ORDERED: SENNOSIDES-DOCUSATE SODIUM 1 EACH TAB PO SCH (21:00)
[2023-08-02] MEDS: LACTATED RINGERS 1,000 ML IV SCH (00:23)
[2023-08-02] MEDS: SODIUM CHLORIDE 0.9% 1,000 ML IV SCH (01:11)
[2023-08-02] MEDS: HYDROcodone/APAP 7.5-325MG 1 EACH TAB PO PRN ×2 (07:25→12:23)
[2023-08-02] MEDS: ASPIRIN 325 MG TAB PO SCH (08:00)
[2023-08-02 08:34] LABS: Basophils # (A) 0.01 X 10*3/uL (0.00-0.10); Basophils % (A) 0.1 %; Eosinophils # (A) 0 X 10*3/uL (0.04-0.35); Eosinophils % (A) 0 %; HGB 10.3 g/dL (12.0-15.0); Lymphocytes # (A) 1.86 X 10*3/uL (0.90-5.00); Lymphocytes % (A) 14.6 %; MCH 32.4 pg (27.0-32.0); MCHC 33.2 g/dL (32.0-37.0); MCV 97.5 FL (80.0-97.0); Mean Platelet Volume 10.9 FL (9.5-12.2); Monocytes # (A) 1.36 X 10*3/uL (0.20-1.00); Monocytes % (A) 10.7 %; NRBC Per 100 WBC 0 X 10*3/uL (0.00-0.01); Neutrophils # (A) 9.41 X 10*3/uL (1.80-7.70); Neutrophils % (A) 74.1 %; Platelet Count 199 X 10*3/uL (140-440); RBC 3.18 X 10*6/uL (4.10-5.20); RDW 12.8 % (11.5-14.5)
[2023-08-02 09:24] VITALS: BP 124/71; PULSE 87; RESP 20; TEMP 98
[2023-08-02] MEDS ORDERED: LOSARTAN 50 MG TAB PO SCH (11:15)
[2023-08-02] MEDS ORDERED: hydroCHLOROthiazide 25 MG TAB PO SCH (11:15)
[2023-08-02] MEDS ORDERED: amLODIPine 10 MG TAB PO SCH (11:15)
[2023-08-02] MEDS ORDERED: LEVOTHYROXINE 137 MCG TAB PO SCH (11:15)
--- NOTE | 2023-08-02 11:27 | P.DS ---
Providers Expected date of discharge: 08/02/23 Attending physician: Adalberto Coppola Consults: 08/01/23 10:46 Consult Physician Routine Consulting Provider: Ángela Rodriguez Consult Reason/Comments: medical management Do you want consulting provider notified?: Yes Primary care physician: Adalberto Rebollar - Discharge Diagnosis(es) (1) Primary osteoarthritis of right knee Current Visit: Yes Status: Acute (2) Status post total right knee replacement Current Visit: Yes Status: Acute Hospital Course: This is a 73-year-old female with history of degenerative arthritis of the right knee. The patient has failed conservative outpatient treatment and elects to proceed with total right knee arthroplasty. The patient is evaluated by the primary care physician and cleared for surgery. The patient is admitted to [facility] on 08/01/2023 for total right knee arthroplasty. The procedure is performed without complication or sequelae. The patient is doing well postoperatively. Vital signs and labs are stable. The patient is discharged to home today in good condition. Please see med rec for accurate list of home medications. Patient Condition at Discharge: Good Plan - Discharge Summary Discharge Rx Participant: No New Discharge Prescriptions: New Aspirin 325 mg PO BID #60 tab HYDROcodone/APAP 7.5-325MG [[place] 7.5-325] 1 - 2 tab PO Q6H PRN #32 tab PRN Reason: Pain Sennosides [Senokot] 2 tab PO DAILY PRN #60 tablet PRN Reason: Constipation No Action Ascorbic Acid [Vitamin C] 1,000 mg PO DAILY Olmesartan/Amlodipin/Hcthiazid [Tribenzor 40-10-25 mg Tablet] 1 cap PO DAILY Calcium Carbonate/Vitamin D3 [Caltrate 600 Plus D3 Tablet] 1 cap PO DAILY [place]-3 Fatty Acids/Fish Oil [Fish Oil 1,000 mg Softgel] 1 cap PO DAILY Cholecalciferol [Vitamin D3] 1 tab PO DAILY Metoprolol Tartrate [Lopressor] 50 mg PO HS Cyanocobalamin [Vitamin B-12] 500 mcg PO DAILY Nf-Move Free Supp. 1 tab PO DAILY traMADol HCL 50 mg PO BID Levothyroxine Sodium [Synthroid] 137 mcg PO DAILY Cinnamon Bark [Cinnamon] 500 mg PO DAILY Zinc Gluconate [Zinc] 50 mg PO DAILY Celecoxib [CeleBREX] 200 mg PO BID Discharge Medication List Ascorbic Acid [Vitamin C] 1,000 mg PO DAILY 12/31/13 [History] Calcium Carbonate/Vitamin D3 [Caltrate 600 Plus D3 Tablet] 1 cap PO DAILY 12/31/13 [History] Olmesartan/Amlodipin/Hcthiazid [Tribenzor 40-10-25 mg Tablet] 1 cap PO DAILY 12/31/13 [History] [place]-3 Fatty Acids/Fish Oil [Fish Oil 1,000 mg Softgel] 1 cap PO DAILY 05/18/17 [History] Cholecalciferol [Vitamin D3] 1 tab PO DAILY 08/25/17 [History] Metoprolol Tartrate [Lopressor] 50 mg PO HS 08/25/17 [History] Celecoxib [CeleBREX] 200 mg PO BID 07/27/23 [History] Cinnamon Bark [Cinnamon] 500 mg PO DAILY 07/27/23 [History] Cyanocobalamin [Vitamin B-12] 500 mcg PO DAILY 07/27/23 [History] Levothyroxine Sodium [Synthroid] 137 mcg PO DAILY 07/27/23 [History] Nf-Move Free Supp. 1 tab PO DAILY 07/27/23 [History] Zinc Gluconate [Zinc] 50 mg PO DAILY 07/27/23 [History] traMADol HCL 50 mg PO BID 07/27/23 [History] Aspirin 325 mg PO BID #60 tab 08/01/23 [Rx] HYDROcodone/APAP 7.5-325MG [[place] 7.5-325] 1 - 2 tab PO Q6H PRN #32 tab 08/01/23 [Rx] Sennosides [Senokot] 2 tab PO DAILY PRN #60 tablet 08/01/23 [Rx] Follow up Appointment(s)/Referral(s): [facility] [NON-STAFF] - As Needed Adalberto Coppola DO [Doctor of Osteopathic Medicine] - 2 Weeks Activity/Diet/Wound Care/Special Instructions: Weightbearing as tolerated with a walker. CPM 5-6h daily as tolerated. Leave dressing intact. Dressing may be removed by home care nurse or by patient in 7 days. Then change dressing twice daily until follow up. May shower with initial dressing intact and after removal. If dressing become saturated, please remove. Recommend use of compression stockings daily until follow up to help prevent swelling and blood clots. May remove at night before sleeping. Please take aspirin 325mg twice daily for 30 days to prevent blood clots. Please follow up with [facility] and call with any questions or concerns, . Discharge Disposition: HOME WITH HOME HEALTH SERVICES
--- NOTE | 2023-08-02 13:11 | P.PN ---
Subjective Progress Note Date: 08/02/23 (delayed charting seen at 1030) Patient is a 73-year-old female with known hypertension, dyslipidemia, hypothyroidism, gout, and chronic kidney disease stage III due to hypertension who came in for an elective total knee arthroplasty. She tolerated the procedure without any postoperative complications. Patient seen and examined at bedside. Her pain is well controlled. No chest pain or shortness of breath Vital signs reviewed General: nontoxic, no distress, appears at stated age Cardiovascular: S1S2 reg, no murmur, positive posterior tibial pulse bilateral, Lungs: CTA bilateral, no rhonchi, no rales , no accessory muscle use Abdominal: soft, nontender to palpation, no guarding, no appreciable organomegaly Ext: no gross muscle atrophy, no edema b/l lower extremities, no contractures Neuro: CN II-XI grossly intact, no focal neuro deficits Psych: Alert, oriented, appropriate affect Assessment/Plan: 73-year-old female status post right total knee arthroplasty. Acute blood loss anemia - MVI with iron X 30 days Hypertension Dyslipidemia Gout Chronic kidney disease stage III Hypothyroidism - losartan, amlodipine, and hydrochlorothiazide combination tablet, metoprolol 50 mg at night, Synthroid 137 g daily Patient medically optimized for discharge Data Review: Labs reviewed from today includes CBC which is remarkable for white blood cell count 12.7, hemoglobin 10.3 Thank you for allowing us to participate in the care of this pleasant patient. Do not hesitate to contact us with questions. Someone can be reached from the [facility] hospitalist group all hours of the day at [phone] or via [employer] serve. This dictation was prepared using [employer] voice recognition software. Though every attempt is made to correct errors during dictation some may still e xist. Objective - Vital Signs Vital signs: Vital Signs Temp 98.0 F 08/02/23 07:39 Pulse 87 08/02/23 08:00 Resp 20 08/02/23 08:00 BP 124/71 08/02/23 07:39 Pulse Ox 97 08/02/23 07:39 FiO2 Intake & Output 08/01/23 08/02/23 08/02/23 18:59 06:59 18:59 Intake Total 3021 840 Output Total 50 Balance 2971 840 Weight 89.7 kg Intake: IV 1 Intake, IV Titration 390 840 Amount Sodium Chloride 0.9% 1, 340 840 000 ml @ 70 mls/hr IV . [id number] [facility] Rx#:[id number] ceFAZolin 2 gm In Sodium 50 Chloride 0.9% 50 ml @ 100 mls/hr IVPB Q8HR [facility] Rx# :[id number] Oral 580 Output: Estimated Blood Loss 50 Other: # Voids 1 3 - Labs CBC & Chem 7: 08/02/23 04:01 Labs: Abnormal Lab Results - Last 24 Hours (Table) 08/02/23 Range/Units 04:01 WBC 12.70 H (4.50-10.00) X 10*3/uL RBC 3.18 L (4.10-5.20) X 10*6/uL Hgb 10.3 L (12.0-15.0) g/dL Hct 31.0 L (37.2-46.3) % MCV 97.5 H (80.0-97.0) FL MCH 32.4 H (27.0-32.0) pg Immature Gran # 0.06 H (0.00-0.04) X 10*3/uL Neutrophils # 9.41 H (1.80-7.70) X 10*3/uL Monocytes # 1.36 H (0.20-1.00) X 10*3/uL Eosinophils # 0 L (0.04-0.35) X 10*3/uL
--- NOTE | 2023-08-02 13:52 | P.PN ---
Progress Note - Text Progress Note Date: 08/02/23 Anesthesiology Postop day 1 status post total knee arthroplasty with adductor canal catheter. Patient doing well. VAS 2 out of 10. Gross strength intact in lower extremity. Afebrile. Denies alterations in sensorium. Catheter site intact. Heart regular rate Lungs nonlabored Abdomen nondistended Assessment: Postop day 1 status post total knee arthroplasty with adductor canal catheter Plan: 1.All questions answered. Maintain catheter 2 more days with patient removal at home. Instructions to be given at discharge. 2.This note was dictated using [employer] software. Please be advised there is a potential for misspellings or errors in rehab spec.
== END 2023-08-02 13:49 | disposition home health service (06) ==
LOC: OR 09:26 → 4SSUR 12:46 → OR 08-02 13:49
PROVIDERS: ATTEND Orthopaedic Surgery
DX: M17.11 Unilateral primary osteoarthritis, right knee (principal); G89.18 Other acute postprocedural pain; I10 Essential (primary) hypertension; E78.5 Hyperlipidemia, unspecified; E03.9 Hypothyroidism, unspecified; M10.9 Gout, unspecified; Z85.42 Personal history of malignant neoplasm of other parts of uterus; Z79.890 Hormone replacement therapy; Z79.899 Other long term (current) drug therapy; Z88.0 Allergy status to penicillin; Z88.5 Allergy status to narcotic agent; Z91.040 Latex allergy status; Z87.891 Personal history of nicotine dependence; Z96.653 Presence of artificial knee joint, bilateral; Z98.890 Other specified postprocedural states; Z90.710 Acquired absence of both cervix and uterus
CPT/HCPCS: 97161; 64999; 64448; 85025; 73560; 27447; C1713; C1776; C1751; J2250; J1100; J0690 ×2; J2405; J2795